=== PATIENT | female | born 1980 | race Two or more races ===

== ENCOUNTER 2022-08-26 03:21 | Inpatient (IN) | payer OTHER ==
[~2022-08-26] VITALS: Ht 149.9 cm; Wt 74.8 kg
--- NOTE | 2022-08-26 04:00 | NUR ---
BIBFRTHEODORE C/O LEFT SIDE ABD PAIN. PATIENT IS AAOX4. ABLE TO MAKE NEEDS KNOWN. ATTACHED TO MONITOR. VITALS CHECKED.
[2022-08-26] MEDS ORDERED: ONDANSETRON HCL/PF 4 MG/2 ML VIAL ONE (04:25)
[2022-08-26] MEDS ORDERED: IV NS 0.9% 500 ML BAG IV ONE (04:30)
[2022-08-26] MEDS ORDERED: ONDANSETRON HCL/PF 4 MG/2 ML VIAL IVP ONE (04:30)
--- NOTE | 2022-08-26 04:49 | NUR ---
IV CANNULA G20 INSERTED ON RIGHT FA. BLOOD DRAWN AND SENT TO LAB. PT CANNOT PROVIDE URINE SAMPLE AT THE MOMENT. SPECIMEN CUP GIVEN TO PT.
[2022-08-26 05:15] LABS: BASOPHILS % (AUTO) 0.7 % (0.0-2.0); EOSINOPHILS % (AUTO) 2.6 % (0.0-6.0); HEMATOCRIT 41 % (33-45); HEMOGLOBIN 13.4 g/dL (11.5-14.8); LYMPHOCYTES # (AUTO) 1.6 K/uL (0.8-4.8); LYMPHOCYTES % (AUTO) 22.7 % (20.0-44.0); MEAN CORPUSCULAR HGB CONC 33 g/dl (31.0-36.0); MEAN CORPUSCULAR VOLUME 91 fL (82-100); MONOCYTES # (AUTO) 0.6 K/uL (0.1-1.30); MONOCYTES % (AUTO) 8.4 % (2.0-12.0); NEUTROPHILS # (AUTO) 4.7 K/uL (1.8-8.9); NEUTROPHILS % (AUTO) 65.6 % (43.0-81.0); PLATELET COUNT (AUTO) 361 K/uL (150-450); RED BLOOD CELL COUNT(AUTO) 4.46 MIL/uL (4.0-5.2); WHITE BLOOD COUNT (AUTO) 7.1 K/uL (4.3-11.0)
[2022-08-26 05:33] LABS: ALBUMIN 3.6 g/dL (3.4-5.0); BILIRUBIN,DIRECT 0.7 mg/dL (0.0-0.2); CALCIUM, SERUM 8.7 mg/dL (8.5-10.1); CREATININE 0.9 mg/dL (0.6-1.3); TOTAL PROTEIN, SERUM 7.7 g/dL (6.4-8.2)
--- NOTE | 2022-08-26 05:35 | NUR ---
WHEELED TO CT DEPT.
--- NOTE | 2022-08-26 05:51 | NUR ---
URINE SPECIMEN SENT TO LAB
--- NOTE | 2022-08-26 06:10 | NUR ---
COVID SWAB DONE AND SENT TO LAB
[2022-08-26 06:21] LABS: BILIRUBIN,URINE MODERATE (NEGATIVE); COLOR,URINE YELLOW (YELLOW); LEUKOCYTE ESTERASE ,URINE NEGATIVE (NEGATIVE); NITRITE, URINE NEGATIVE (NEGATIVE); PROTEIN,URINE NEGATIVE (NEGATIVE); UGLUCOSE >=1000 mg/dL (NEGATIVE)
--- NOTE | 2022-08-26 06:34 | NUR ---
SANJIV BARBA AT BEDSIDE
--- NOTE | 2022-08-26 07:28 | NUR ---
[facility] CALLED PEDIATRIC ALLERGIST PAGED.
[2022-08-26] MEDS ORDERED: PIPERACILLIN /TAZOBACTAM 3.375 G in IV D5W 50 ML IV ONE (07:30)
[2022-08-26 07:42] LABS: BACTERIA,URINE Rare /HPF (None Seen); CALCIUM OXALATE CRYSTALS,UR Moderate /HPF (None Seen); RBC,URINE 0-2 /HPF (0-2); SQUAMOUS EPITHELIAL CELL,UR Moderate /HPF (None Seen); WBC,URINE 0-2 /HPF (0-3)
--- NOTE | 2022-08-26 08:25 | NUR ---
[facility] CALLED SERVER MANAGER PAGED.
--- NOTE | 2022-08-26 08:46 | NUR ---
REPORT GIVEN TO AXEL SMITH FOR LITA
--- NOTE | 2022-08-26 09:15 | NUR ---
RN NOTE RECEIVED PATIENT FROM ER ,PATIENTS IS ALERT , ORIENTED TIMES 4 , AMBULATORY , CONTINENT .PATIENT C/O ABDOMINAL PAIN AND SCHEDULED TODAY FOR LAPAROSCOPIC CHOLECYSTECTOMY, PATIENT IS NPO. HAS IV ACCESS ON THR RFA20 G , FLUSHED .BED IS AT LOWEST POSITION , CALL LIGHT WITHIN REACH , WILL CONTINUE TO FALLOW POC
[2022-08-26] MEDS: MORPHINE SULFATE INJ 2 MG/ML DISP.SYRIN IV PRN ×3 (09:50→21:00)
[2022-08-26 11:08] VITALS: BP 105/65
[2022-08-26] MEDS ORDERED: FENTANYL PF 100MCG/2ML AMPUL ONE (12:37)
[2022-08-26] MEDS ORDERED: MIDAZOLAM HCL 2 MG/2ML VIAL ONE (12:37)
[2022-08-26] MEDS ORDERED: FAMOTIDINE/PF INJ 20 MG/2 ML VIAL IV ONE (12:38)
[2022-08-26] MEDS ORDERED: ROCURONIUM BROMIDE 50 MG/5 ML ONE (12:38)
[2022-08-26] MEDS ORDERED: HYDROMORPHONE INJ 2 MG/ML DISP.SYRIN ONE (12:38)
--- NOTE | 2022-08-26 12:53 | NUR ---
RN NOTE PATIENT WAS TAKEN TO THE OR .
[2022-08-26] MEDS ORDERED: BUPIVACAINE MPF 0.5% W/EPI INJ 30 ML VIAL ONE (13:17)
[2022-08-26] MEDS ORDERED: ACETAMINOPHEN 325 MG TABLET PO PRN (13:30)
[2022-08-26] MEDS ORDERED: HYDROCODONE/APAP 5/325MG TABLET PO PRN (13:30)
[2022-08-26] MEDS ORDERED: Z GUARD REMEDY 4 OZ OINT TP PRN (13:30)
[2022-08-26] MEDS ORDERED: MORPHINE SULFATE INJ 2 MG/ML DISP.SYRIN IV PRN (13:30)
[2022-08-26] MEDS ORDERED: MAGNESIUM HYDROXIDE 30 ML UDC PO PRN (13:30)
[2022-08-26] MEDS ORDERED: ONDANSETRON HCL/PF 4 MG/2 ML VIAL IVP PRN (13:30)
[2022-08-26] MEDS ORDERED: MAG HYDROX/AL HYDROX/SIMETH 30 ML UDC PO PRN (13:30)
--- NOTE | 2022-08-26 15:45 | NUR ---
RN NOTE PATIENT IS BACK FROM OR , HAD LAPAROSCOPICALLY PROCEDURE DONE , HAS SURGICAL DRESSING IN PLACE , VERENICE DRAIN ON THE RIGHT UPPER QUADRAND OF THE ABDOMEN DRAINING BLOODY DISCHARGE,. PATIENT C/O PAON OF THE ABDOMEN , PRN MORPHINE WAS ADMINISTERED , INSTRUCTIONS WERE PROVIDED ON HOW TO USE INCENTIVE SPIROMETER .PATIENT VERBALIZED UNDERSTANDING.UPON ARRIVAL VS : BP 125/75 , HR 78 , RESP 20 , O2 SAT 97% , PATIENT IS ON O2 3 L VIA N/C WILL CONTINUE TO MONITOR
[2022-08-26 15:48] VITALS: BP 125/75
[2022-08-26] MEDS: IV NS 0.9% 1,000 ML IV PRN (15:54)
[2022-08-26] MEDS: PIPERACILLIN /TAZOBACTAM 4.5 G in IV D5W 50 ML IV SCH ×2 (17:08→23:08)
[2022-08-26 18:18] VITALS: BP 135/72
[2022-08-26 18:32] VITALS: BP 135/72
[2022-08-26] MEDS: HYDROCODONE/APAP 10/325MG TABLET PO PRN (18:36)
--- NOTE | 2022-08-26 18:48 | NUR ---
RN CLOSING NOTE PATIENT IS S/P LAPAROSCOPIC CHOLECYSTECTOMY DONE , HAS SURGICAL DRESSING IN PLACE , VERENICE DRAIN ON THE RIGHT UPPER QUADRAND OF THE ABDOMEN DRAINING BLOODY DISCHARGE,. PATIENT C/O PAIN OF THE ABDOMEN , PRN MORPHINE WAS ADMINISTERED , INSTRUCTIONS WERE PROVIDED ON HOW TO USE INCENTIVE SPIROMETER .PATIENT VERBALIZED UNDERSTANDING. IV ACCESS ON RFA 24 G RUNNING 75 ML OF NS . ALL SAFETY MEASURES ARE IN PLACE , CALL LIGHT WITHIN REACH , BED SIDE RAILS ARE UP, BED IS AT LOWEST POSITION .WILL ENDORSE DOLL WIG MAKER NURSE TO FALLOW POC.
[2022-08-26 20:00] VITALS: BP 110/52
--- NOTE | 2022-08-26 20:00 | NUR ---
MS RN CLOSING NOTE RECEIVED PATIENT AWAKE A/OX4 ABLE TO MAKE NEEDS KNOWN . S/P LAPAROSCOPIC CHOLECYSTECTOMY DONE , HAS SURGICAL DRESSING IN PLACE , VERENICE DRAIN ON THE RIGHT UPPER QUADRANT OF THE ABDOMEN DRAINING BLOODY DISCHARGE, DRESSING ON THE VERENICE SITE REINFORCE . PATIENT C/O PAIN OF THE ABDOMEN , PRN MORPHINE WAS ADMINISTERED WITH RELIEF . IV ACCESS ON RFA 24 G RUNNING 75 ML OF NS . ALL SAFETY MEASURES ARE IN PLACE , CALL LIGHT WITHIN REACH , BED SIDE RAILS ARE UP, BED IS AT LOWEST POSITION .WILL CONTINUE TO MONITOR
[2022-08-26] MEDS: ANCEF 1 GM/50 ML D5W IV SCH ×2 (20:53)
[2022-08-27] MEDS: HYDROCODONE/APAP 10/325MG TABLET PO PRN (00:20)
[2022-08-27] MEDS: MORPHINE SULFATE INJ 2 MG/ML DISP.SYRIN IV PRN ×3 (02:50→12:53)
[2022-08-27 04:00] VITALS: BP 127/77
[2022-08-27] MEDS: PIPERACILLIN /TAZOBACTAM 4.5 G in IV D5W 50 ML IV SCH (06:01)
[2022-08-27] MEDS: ANCEF 1 GM/50 ML D5W IV SCH ×2 (06:01)
--- NOTE | 2022-08-27 06:48 | NUR ---
RN CLOSING NOTE PATIENT REMAIN IN BED , S/P LAPAROSCOPIC CHOLECYSTECTOMY ON 3 LITERS OF 02 VIA NC . SATING 96%, SURGICAL DRESSING IN PLACE , VERENICE DRAIN ON THE RIGHT UPPER QUADRANT OF THE ABDOMEN . PATIENT C/O PAIN PRN MEDS GIVEN ORDERED. INSTRUCTIONS WERE PROVIDED ON HOW TO USE INCENTIVE SPIROMETER .PATIENT VERBALIZED UNDERSTANDING. IV ACCESS ON RFA 24 G RUNNING 75 ML OF NS . ALL SAFETY MEASURES ARE IN PLACE , CALL LIGHT WITHIN REACH , BED SIDE RAILS ARE UP, BED IS AT LOWEST POSITION .WILL ENDORSE TO RN DAY SHIFT FOR CONTINUITY OF CARE.
--- NOTE | 2022-08-27 07:20 | NUR ---
RN OPENING NOTE RECEIVED PATIENT ASLEEP IN BED. EASILY AROUSED. A/O X4, VERBALLY RESPONSIVE. NO SIGNS OF ACUTE DISTRESS NOTED. ON O2 @ 3LPM VIA N/C, NO SOB NOTED, BREATHING EVEN AND UNLABORED. NOTED WITH IV ACCESS ON RIGHT FOREARM #24G, INTACT AND PATENT WITH NS @ 75ML/HR RUNNING. NOTED WITH SURGICAL DRESSING ON ABDOMINAL AREA, WITH VERENICE DRAIN TO SUCTION BULB WITH SANGUINEOUS OUTPUT. SAFETY MEASURE IN PLACE. BED IN LOWEST AND LOCKED POSITION, SIDE RAILS UP X2, CALL LIGHT PLACED WITHIN EASY REACH. WILL CONTINUE TO MONITOR PATIENT.
[2022-08-27] MEDS ORDERED: PANTOPRAZOLE 40 MG TABLET.DR PO SCH (07:30)
[2022-08-27 07:41] LABS: BASOPHILS % (AUTO) 0.2 % (0.0-2.0); HEMATOCRIT 38 % (33-45); HEMOGLOBIN 12.3 g/dL (11.5-14.8); LYMPHOCYTES % (AUTO) 7.7 % (20.0-44.0); MEAN CORPUSCULAR HGB CONC 32 g/dl (31.0-36.0); MEAN CORPUSCULAR VOLUME 92 fL (82-100); MONOCYTES % (AUTO) 7.5 % (2.0-12.0); NEUTROPHILS # (AUTO) 11.3 K/uL (1.8-8.9); NEUTROPHILS % (AUTO) 84.6 % (43.0-81.0); PLATELET COUNT (AUTO) 377 K/uL (150-450); RED BLOOD CELL COUNT(AUTO) 4.13 MIL/uL (4.0-5.2); WHITE BLOOD COUNT (AUTO) 13.4 K/uL (4.3-11.0)
[2022-08-27 08:27] LABS: ALBUMIN 3.1 g/dL (3.4-5.0); BILIRUBIN,TOTAL 0.6 mg/dL (0.2-1.0); CALCIUM, SERUM 8.7 mg/dL (8.5-10.1); CREATININE 0.9 mg/dL (0.6-1.3); PHOSPHORUS 3.6 mg/dL (2.5-4.9); TOTAL PROTEIN, SERUM 7.1 g/dL (6.4-8.2)
[2022-08-27] MEDS: IV NS 0.9% 1,000 ML IV PRN (08:32)
[2022-08-27 12:00] VITALS: BP 124/77
--- NOTE | 2022-08-27 12:25 | NUR ---
RN NOTE DR. ARAIZA HERE, REMOVED PATIENT'S VERENICE DRAIN. PATIENT TOLERATED PROCEDURE WELL. NOTED WITH MINIMAL BLEEDING. DRY DRESSING APPLIED TO SITE. PER MD, PT CLEARED FOR DISCHARGE AND F/U IN 1 WEEK.
[2022-08-27] MEDS ORDERED: PIPERACILLIN /TAZOBACTAM 4.5 G in IV D5W 100 ML IV SCH (13:00)
--- NOTE | 2022-08-27 16:50 | NUR ---
[facility] NOTE PATIENT DISCHARGED TO HOME IN STABLE CONDITION. PATIENT ALERT AND ORIENTED X4, VERBALLY RESPONSIVE AND ABLE TO MAKE NEEDS KNOWN. STABLE ON ROOM AIR. IV ACCESS ON LEFT FOREARM #20G, REMOVED, NO BLEEDING NOTED, PRESSURE DRESING APPLIED TO SITE. ARM NAME BAND REMOVED. ALL BELONGINGS ACCOUNTED FOR. FORM SIGNED BY PATIENT. EXIT CARE FOLDER GIVEN TO PATIENT. DISCHARGE INSTRUCTIONS AND HEALTH TEACHINGS PROVIDED WITH VERBALIZATION OF UNDERSTANDING. PATIENT LEFT UNIT @1645 ACCOMPANIED TO THE LOBBY VIA W/C, PICKED UP BY [facility] VIA PRIVATE CAR. CN AWARE OF DISCHARGE.
== END 2022-08-27 16:40 | disposition home or self-care (01) | DRG 263 ==
LOC: ER 03:24 → MEDSG1 08:53
PROC: 0FT44ZZ Resection of Gallbladder, Percutaneous Endoscopic Approach (ICD-10-PCS; principal; 2022-08-26)
DX: K80.00 Calculus of gallbladder with acute cholecystitis without obstruction (principal); K76.0 Fatty (change of) liver, not elsewhere classified; K66.0 Peritoneal adhesions (postprocedural) (postinfection); Z20.822 Contact with and (suspected) exposure to COVID-19; Z87.442 Personal history of urinary calculi; Z88.1 Allergy status to other antibiotic agents; Z88.2 Allergy status to sulfonamides; K82.8 Other specified diseases of gallbladder; N20.0 Calculus of kidney
CPT/HCPCS: 36415; 76705-TC; 80048-TC; 80053-TC; 80061-TC; 80076-TC; 81001; 83690-TC; 83735-TC; 84100-TC; 84703-TC; 85025-TC; 85730-TC; 87081-TC; A6253; C9803; G0378; J0690; J1100; J1170; J2250; J2270; J2405; J2543; J2704; J2765; J3010; J3490; J7030; J7040; J7060

== ENCOUNTER 2022-09-23 04:15 | Emergency (ER) | payer OTHER ==
[~2022-09-23] VITALS: Ht 149.9 cm; Wt 72.6 kg
--- NOTE | 2022-09-23 04:40 | NUR ---
TO ER BED 3. BIBBOYFRIEND FOR RIGHT ABD PAIN X 5 DAYS AGREVATED BY BENDING AND WALKING. PT IS ALERT AND ORIENTED. RR EVEN AND NONLABORED. CONNECTED TO MONITOR.
[2022-09-23] MEDS ORDERED: ONDANSETRON HCL/PF 4 MG/2 ML VIAL ONE (04:41)
[2022-09-23] MEDS ORDERED: MORPHINE SULFATE INJ 2 MG/ML DISP.SYRIN ONE (04:41)
[2022-09-23] MEDS: ONDANSETRON HCL/PF 4 MG/2 ML VIAL IVP ONE (04:59)
[2022-09-23] MEDS: MORPHINE SULFATE INJ 2 MG/ML DISP.SYRIN IV ONE (04:59)
--- NOTE | 2022-09-23 04:59 | NUR ---
IV LINE ESTABLISHED, [id number]
--- NOTE | 2022-09-23 04:59 | NUR ---
BLOOD COLLECTED AND SENT TO LAB
--- NOTE | 2022-09-23 05:00 | NUR ---
UNABLE TO PROVIDE URINE AT THIS TIME, URINE CUP PROVIDED
--- NOTE | 2022-09-23 05:00 | NUR ---
WEIVER SIGNED BY PT
[2022-09-23 05:16] LABS: BASOPHILS # (AUTO) 0.1 K/uL (0.0-0.2); BASOPHILS % (AUTO) 0.8 % (0.0-2.0); EOSINOPHILS % (AUTO) 2.7 % (0.0-6.0); HEMATOCRIT 39 % (33-45); HEMOGLOBIN 13.1 g/dL (11.5-14.8); LYMPHOCYTES # (AUTO) 2.6 K/uL (0.8-4.8); LYMPHOCYTES % (AUTO) 36.2 % (20.0-44.0); MEAN CORPUSCULAR HGB CONC 34 g/dl (31.0-36.0); MEAN CORPUSCULAR VOLUME 91 fL (82-100); MONOCYTES # (AUTO) 0.8 K/uL (0.1-1.30); MONOCYTES % (AUTO) 11.6 % (2.0-12.0); NEUTROPHILS # (AUTO) 3.5 K/uL (1.8-8.9); NEUTROPHILS % (AUTO) 48.7 % (43.0-81.0); PLATELET COUNT (AUTO) 392 K/uL (150-450); RED BLOOD CELL COUNT(AUTO) 4.31 MIL/uL (4.0-5.2); WHITE BLOOD COUNT (AUTO) 7.1 K/uL (4.3-11.0)
[2022-09-23 05:29] LABS: CALCIUM, SERUM 9.4 mg/dL (8.5-10.1); CREATININE 0.9 mg/dL (0.6-1.3); POTASSIUM 3.8 mmol/L (3.5-5.1)
[2022-09-23 05:38] LABS: ALBUMIN 3.8 g/dL (3.4-5.0); BILIRUBIN,DIRECT 0.1 mg/dL (0.0-0.2); BILIRUBIN,TOTAL 0.3 mg/dL (0.2-1.0); TOTAL PROTEIN, SERUM 7.8 g/dL (6.4-8.2)
--- NOTE | 2022-09-23 05:54 | NUR ---
IV removed. Catheter intact and site benign. Pressure and 4x4 applied to site. No bleeding noted.
--- NOTE | 2022-09-23 05:54 | NUR ---
Patient discharged to home in stable condition. Written and verbal after care instructions given. Patient verbalizes understanding of instruction.
[2022-09-23 05:58] VITALS: BP 131/89
== END 2022-09-23 06:03 | disposition home or self-care (01) ==
LOC: ER 04:17
DX: R10.9 Unspecified abdominal pain (principal); Z90.49 Acquired absence of other specified parts of digestive tract; Z88.2 Allergy status to sulfonamides; Z88.8 Allergy status to other drugs, medicaments and biological substances
CPT/HCPCS: 99284; 74176; 96374; 96375; 85025; 80048; 83690; 80076; 36415; 85730; J2405; J2270

== ENCOUNTER 2023-07-25 04:29 | Emergency (ER) | payer OTHER ==
[~2023-07-25] VITALS: Ht 149.9 cm; Wt 70.3 kg
[2023-07-25] MEDS ORDERED: CYCLOBENZAPRINE 10 MG TABLET PO ONE (05:30)
[2023-07-25] MEDS ORDERED: CYCLOBENZAPRINE 10 MG TABLET ONE (05:41)
[2023-07-25] MEDS ORDERED: CYCL5TAB PO (05:44)
[2023-07-25] MEDS ORDERED: IBUP-1955 PO (05:44)
[2023-07-25 06:38] VITALS: BP 137/77; TEMP 98.1; O2SAT 100
== END 2023-07-25 06:39 | disposition home or self-care (01) ==
LOC: ER 04:39
DX: S13.4XXA Sprain of ligaments of cervical spine, initial encounter (principal); S39.012A Strain of muscle, fascia and tendon of lower back, initial encounter; S46.919A Strain of unspecified muscle, fascia and tendon at shoulder and upper arm level, unspecified arm, initial encounter; Z90.49 Acquired absence of other specified parts of digestive tract; Z88.2 Allergy status to sulfonamides; Z88.8 Allergy status to other drugs, medicaments and biological substances; V89.2XXA Person injured in unspecified motor-vehicle accident, traffic, initial encounter; Y93.89 Activity, other specified; Y92.89 Other specified places as the place of occurrence of the external cause; Y99.8 Other external cause status
CPT/HCPCS: 71045-TC; 72110-TC

== ENCOUNTER 2024-07-27 19:50 | Emergency (ER) | payer OTHER ==
[~2024-07-27] VITALS: Ht 149.9 cm; Wt 70.3 kg
[~2024-07-27 19:50] MED LIST: CYCL5TAB PO; IBUP-1955 PO
[2024-07-27] MEDS: IV NS 0.9% 1,000 ML BAG IV ONE (21:17)
[2024-07-27 21:18] LABS: BASOPHILS % (AUTO) 0.5 % (0.0-2.0); EOSINOPHILS # (AUTO) 0.2 K/uL (0.0-0.7); EOSINOPHILS % (AUTO) 2.2 % (0.0-6.0); HEMATOCRIT 42 % (33-45); HEMOGLOBIN 13.6 g/dL (11.5-14.8); MEAN CORPUSCULAR HEMOGLOBIN 30 PG (26.0-33.0); MEAN CORPUSCULAR HGB CONC 33 g/dl (31.0-36.0); MEAN CORPUSCULAR VOLUME 92 fL (82-100); MONOCYTES # (AUTO) 0.6 K/uL (0.1-1.30); MONOCYTES % (AUTO) 7.8 % (2.0-12.0); NEUTROPHILS # (AUTO) 4.9 K/uL (1.8-8.9); NEUTROPHILS % (AUTO) 63.5 % (43.0-81.0); PLATELET COUNT (AUTO) 313 K/uL (150-450); RED CELL DISTRIBUTION WIDTH 12.9 % (11.5-15.0); WHITE BLOOD COUNT (AUTO) 7.7 K/uL (4.3-11.0)
[2024-07-27] MEDS: IV LR 1000 ML 1,000 ML BAG IV ONE (21:18)
[2024-07-27 21:29] LABS: CALCIUM, SERUM 8.9 mg/dL (8.5-10.1); CREATININE 0.9 mg/dL (0.6-1.3); POTASSIUM 4.3 mmol/L (3.5-5.1)
[2024-07-27] MEDS ORDERED: HYDR-500 PO (21:51)
[2024-07-27] MEDS ORDERED: HYDR28.318 TP (21:51)
[2024-07-27] MEDS: INSULIN REGULAR, HUMAN 100 UNIT/ML 10 ML VIAL SQ ONE (22:01)
[2024-07-27 22:31] VITALS: BP 132/80; TEMP 97.8; O2SAT 98
== END 2024-07-27 22:32 | disposition home or self-care (01) ==
LOC: ER 19:53
DX: L30.9 Dermatitis, unspecified (principal); E11.65 Type 2 diabetes mellitus with hyperglycemia; Z79.891 Long term (current) use of opiate analgesic; Z79.899 Other long term (current) drug therapy; Z88.1 Allergy status to other antibiotic agents
CPT/HCPCS: 99283; 96360; 85025; 80048; 82010; 36415; 82962; 96372; J1815; J7120 ×2; J7030

== ENCOUNTER 2025-05-11 04:32 | Emergency (ER) | payer OTHER ==
[~2025-05-11] VITALS: Ht 149.9 cm; Wt 69.4 kg
[~2025-05-11 04:32] MED LIST changes: +HYDR-500 PO; +HYDR28.318 TP
[2025-05-11 05:34] LABS: APPEARANCE,URINE CLEAR (CLEAR); BLOOD, URINE 3+ Ery/uL (NEGATIVE); LEUKOCYTE ESTERASE ,URINE NEGATIVE (NEGATIVE); NITRITE, URINE NEGATIVE (NEGATIVE); UGLUCOSE 3+ mg/dL (NEGATIVE)
[2025-05-11 05:37] LABS: PREGNANCY TEST URINE QUAL NEGATIVE (NEGATIVE)
[2025-05-11 05:40] LABS: ADD URINE CULTURE NO; YEAST,URINE Rare /HPF (None Seen)
[2025-05-11] MEDS ORDERED: KETOROLAC TROMETHAMINE INJ 30 MG/ML VIAL ONE (06:00)
[2025-05-11] MEDS: KETOROLAC TROMETHAMINE INJ 30 MG/ML VIAL IM ONE (06:06)
[2025-05-11 06:18] LABS: BARBITURATE, URINE NEGATIVE (NEGATIVE); BENZODIAZEPINE, URINE NEGATIVE (NEGATIVE); CANNABINOID, URINE NEGATIVE (NEGATIVE); COCCAINE, URINE NEGATIVE (NEGATIVE); OPIATE, URINE NEGATIVE (NEGATIVE)
[2025-05-11 06:19] LABS: AMPHETAMINE, URINE POSITIVE (NEGATIVE)
[2025-05-11] MEDS: IV NS 0.9% 1,000 ML IV ONE ×2 (06:30→06:58)
[2025-05-11] MEDS: INSULIN REGULAR, HUMAN 100 UNIT/ML 10 ML VIAL IV ONE (06:31)
[2025-05-11 06:41] LABS: PLATELET COUNT (AUTO) 353 K/uL (150-450); RED BLOOD CELL COUNT(AUTO) 4.70 MIL/uL (4.0-5.2); RED CELL DISTRIBUTION WIDTH 13.0 % (11.5-15.0); WHITE BLOOD COUNT (AUTO) 8.7 K/uL (4.3-11.0)
[2025-05-11 06:50] LABS: CALCIUM, SERUM 9.1 mg/dL (8.5-10.1); CREATININE 0.7 mg/dL (0.6-1.3); SODIUM SERUM 132 mmol/L (136-145); UREA NITROGEN, BLOOD 18 mg/dL (7-18)
[2025-05-11 06:56] LABS: ASPARTATE AMINOTRANSFERASE 16 U/L (15-37); TOTAL PROTEIN, SERUM 7.6 g/dL (6.4-8.2)
[2025-05-11 07:00] LABS: ACETONE, SERUM NEGATIVE (NEGATIVE)
[2025-05-11] MEDS ORDERED: DOXY100T2 PO (07:43)
[2025-05-11] MEDS ORDERED: FLUC150T PO (07:43)
[2025-05-11 07:52] VITALS: BP 135/85; TEMP 98.5; O2SAT 96
[2025-05-12] MEDS ORDERED: DOXY150T3 PO (08:53)
[2025-05-13 10:07] LABS: CHLAMYDIA TRACHOMATIS NAA Negative (Negative); NEISSERIA GONORRHOEAE NAA Negative (Negative)
== END 2025-05-11 07:53 | disposition home or self-care (01) ==
LOC: ER 04:45
DX: R10.9 Unspecified abdominal pain (principal); E11.65 Type 2 diabetes mellitus with hyperglycemia; N76.0 Acute vaginitis; Z88.1 Allergy status to other antibiotic agents; Z88.2 Allergy status to sulfonamides; Z79.899 Other long term (current) drug therapy
CPT/HCPCS: 99285; 74176; 96374; 76856; 96361; 85025; 87040; 82010; 84703; 36415; 80053; 82962 ×2; 80307; 87491; 87591; 81001; 96372; J1885